=== PATIENT | male | born 1985 | race Caucasian/White ===

== ENCOUNTER 2019-04-25 12:35 | Emergency (ER) | payer SELFPAY ==
[~2019-04-25] VITALS: Ht 165.1 cm; Wt 83.0 kg
[2019-04-25 12:58] VITALS: BP 118/98
== END 2019-04-25 16:20 | disposition home or self-care (01) ==
LOC: ER 12:35
DX: M25.562 Pain in left knee (principal); M25.561 Pain in right knee; Q74.1 Congenital malformation of knee; M25.462 Effusion, left knee; Z94.0 Kidney transplant status
CPT/HCPCS: 73560; 99283